=== PATIENT | female | born 1980 | race Caucasian/White ===

== ENCOUNTER 2018-02-19 20:20 | Emergency (ER) | payer OTHER ==
[~2018-02-19] VITALS: Ht 157.5 cm; Wt 72.6 kg
[~2018-02-19 20:20] MED LIST: ACET500 PO; ALPR.25 PO; ALPR.5 PO; AMOX500 PO; AMPDEX10CR PO; BACITO TP; BENZ100A PO; BIRTH CONTROL; CIPR250 PO; CIPR500 PO; CRUTCH3 USE; CYCL10; CYCL10 PO; Cheratussin AC118 ML PO; Crutch1 EACH MISC; DIAZ5 PO; DIPATR PO; Flonase 0.05% N16 GM; HYDACE5 PO; HYDACE5325 PO; HYDCOR1TC TOP; HYDHCL25 PO; HYDHOMSY PO; IBUHYD PO; IBUP600 PO; IBUP800 PO; INDO50 PO; K-Dur20 MEQ PO; LEVFLO500 PO; LOPE2C PO; MULVITMINE PO; NAPR375 PO; NAPR500 PO; NITR100CA PO; Naprosyn500 MG PO; Norco 10-325 T1 EACH PO; Norco 5-325 Ta1 EACH PO; OXYACE5T PO; OXYC1L PO; PARO20; PARO20 PO; PAXIL40 MG PO; PENVK500 PO; PHENA200 PO; PREN-16 PO; PRENZ; PROM25 PO; Percocet 5-3251 EACH PO; RXALBOI INH; RXHYDACE PO; RXOXYACE PO; RXPHEN200 PO; RXPROM25 PO; RXTRAM50 PO; SERT100 PO; SERT50 PO; SULTRIDS PO; Sudogest30 MG PO; TRAM50 PO; Ultram50 MG PO; Valium5 MG PO; Veetids 500500 MG PO; Zofran Odt4 MG SL; [UNRECOGNIZED DRUG - OTHER]
[2018-02-19] MEDS ORDERED: IBUP600 PO (21:34)
[2018-02-19] MEDS ORDERED: Percocet 5-3251 EACH PO (21:34)
== END 2018-02-19 21:43 | disposition home or self-care (01) ==
LOC: ER 20:20
DX: S83.91XA Sprain of unspecified site of right knee, initial encounter (principal); X58.XXXA Exposure to other specified factors, initial encounter; F17.210 Nicotine dependence, cigarettes, uncomplicated
CPT/HCPCS: 73562-RT; 99283-25

== ENCOUNTER 2019-07-13 09:45 | Emergency (ER) | payer OTHER ==
[~2019-07-13] VITALS: Ht 157.5 cm; Wt 72.6 kg
[2019-07-13] MEDS ORDERED: Norco 5-325 Ta1 EACH PO (10:42)
[2019-07-13] MEDS ORDERED: Voltaren100 GM TOP (10:42)
[2019-07-13] MEDS ORDERED: Robaxin-750750 MG PO (10:42)
== END 2019-07-13 12:17 | disposition home or self-care (01) ==
LOC: ER 09:45
DX: M54.5 Low back pain (principal); F17.210 Nicotine dependence, cigarettes, uncomplicated
CPT/HCPCS: 96372; 99283-25; A9270-GY; J1885

== ENCOUNTER 2022-10-21 07:47 | Emergency (ER) | payer OTHER ==
[~2022-10-21] VITALS: Ht 157.5 cm; Wt 77.1 kg
[~2022-10-21 07:47] MED LIST changes: +Robaxin-750750 MG PO; +Voltaren100 GM TOP
[2022-10-21 08:15] VITALS: BP 125/80
[2022-10-21] MEDS ORDERED: CEPH500 PO (08:17)
[2022-10-21] MEDS ORDERED: Bactrim Ds Tab1 EACH PO (08:17)
== END 2022-10-21 08:32 | disposition home or self-care (01) ==
LOC: ER 07:47
DX: L02.01 Cutaneous abscess of face (principal); F17.210 Nicotine dependence, cigarettes, uncomplicated
CPT/HCPCS: 99282; A9270

== ENCOUNTER 2023-08-17 17:29 | Emergency (ER) | payer OTHER ==
[~2023-08-17] VITALS: Ht 154.9 cm; Wt 77.1 kg
[~2023-08-17 17:29] MED LIST changes: +Bactrim Ds Tab1 EACH PO; +CEPH500 PO
[2023-08-17 18:52] LABS: BASOPHILS ABSOLUTE AUTO 0.06 K/mm3 (0.00-0.23); BASOPHILS PERCENT AUTO 0 % (0-2); EOSINOPHILS ABSOLUTE AUTO 0.13 K/mm3 (0.00-0.68); EOSINOPHILS PERCENT AUTO 1 % (0-6); Hematocrit 41.4 % (33.0-51.0); IMMATURE GRAN ABSOLUTE AUTO 0.09 K/mm3 (0.00-0.10); IMMATURE GRAN PERCENT AUTO 1 % (0-1); LYMPHOCYTES ABSOLUTE AUTO 3.65 K/mm3 (0.84-5.20); LYMPHOCYTES PERCENT AUTO 19 % (21-46); MONOCYTES ABSOLUTE AUTO 1.42 K/mm3 (0.16-1.47); MONOCYTES PERCENT AUTO 7 % (4-13); Mean Corpuscular HGB 28.8 pg (26.0-34.0); Mean Corpuscular HGB Conc 33.8 g/dL (31.5-36.5); Mean Corpuscular Volume 85 fL (80-100); Mean Platelet Volume 9.9 fL (9.1-12.4); NEUTROPHILS ABSOLUTE AUTO 14.19 K/mm3 (1.96-9.15); NEUTROPHILS PERCENT AUTO 73 % (41-73); Platelet Count 332 K/mm3 (150-400); RDW Coefficient Variation 12.5 % (11.7-14.2); RDW Standard Deviation 38.8 fL (35.1-46.3); Red Blood Cell Count 4.86 M/mm3 (3.80-5.20); White Blood Cell Count 19.54 K/mm3 (4.00-11.30)
[2023-08-17 19:16] LABS: Albumin, Blood 3.6 g/dL (3.4-5.0); Albumin/Globulin Ratio 0.7 (0.8-1.8); Bilirubin, Total 0.4 mg/dL (0.1-1.0); Bun/Creatinine Ratio 12.4 (12.0-20.0); Calcium, Blood 8.9 mg/dL (8.5-10.1); Creatinine, Blood 0.57 mg/dL (0.40-1.00); Globulin, Blood 5.1 g/dL (2.2-4.0); Potassium, Blood 3.5 mmol/L (3.5-5.5); Total Protein, Blood 8.7 g/dL (6.4-8.2)
[2023-08-17] MEDS ORDERED: Ampicillin Sod/Sulbactam Sod 3 GM in NS 100 ML IV ONE (20:25)
[2023-08-17 22:30] VITALS: BP 146/83
[2023-08-17] MEDS ORDERED: Ketorolac Tromethamine 30mg Vial IV ONE (22:35)
[2023-08-17] MEDS ORDERED: CEPH500 PO (23:00)
== END 2023-08-17 23:05 | disposition home or self-care (01) ==
LOC: ER 17:29
PROVIDERS: Student in an Organized Health Care Education/Training Program
DX: L03.211 Cellulitis of face (principal); L02.01 Cutaneous abscess of face; K08.9 Disorder of teeth and supporting structures, unspecified; F17.210 Nicotine dependence, cigarettes, uncomplicated
CPT/HCPCS: 36415; 70487; 80053; 83605; 85025; 87040; 96365-59; 96375; 99284-25; J0295; J1885; Q9967